=== PATIENT | male | born 1935 | race Caucasian/White ===

== ENCOUNTER → 2016-09-17 | Outpatient (CLI) | payer MEDICARE, OTHER | END | disposition home or self-care (01) | LOC: GMAM 15:06 | PROVIDERS: ATTEND Family Medicine | DX: R80.9 Proteinuria, unspecified (principal) ==

== ENCOUNTER 2016-11-15 19:51 | Emergency (ER) | payer MEDICARE, OTHER ==
[2016-11-15] MEDS ORDERED: ASPIRIN TABLET 325 MG TAB PO ONE (19:54)
[2016-11-15 20:08] VITALS: TEMP 100.1
--- NOTE | 2016-11-15 20:11 | ED.PDOC ---
History of Present Illness - General Chief Complaint: Chest Pain/[place] Stated Complaint: stroke like symptoms, drooling, weakness Time Seen by Provider: 11/15/16 19:53 Source: patient, RN notes reviewed, Vital Signs reviewed, family - Granddaughter Exam Limitations: no limitations - History of Present Illness Initial Comments: Patient is an 81 y/o male who began feeling weak and a bit disoriented at around noon. He ws driving his tractor and was unable to steer it the way he wanted to. He has been fatigued all day, but not sleeping. He feels pain in his joints, and is weak all over. He does not notice weakness on one side moreso than the other. According to granddaughter, Patient is very active and this is unusual for him. Timing/Duration: other - since 1200 today. Severity: moderate Improving Factors: nothing Worsening Factors: nothing Associated Symptoms: headaches, loss of appetite, weakness Allergies/Adverse Reactions: Allergies Penicillin G Allergy (Unverified 11/15/16 20:08) Home Medications: Ambulatory Orders Finasteride 5 mg PO DAILY 07/14/13 HYDROcodone 5MG/APAP 325MG [[place] 5/325] 1 ea PO PRN 07/14/13 Tamsulosin [Flomax] 0.4 mg PO DAILY 07/14/13 Cefdinir 300 mg PO BID #20 cap 11/16/16 Review of Systems - Review of Systems Constitutional: States: no symptoms reported. Denies: chills, fever EENTM: States: no symptoms reported Respiratory: States: no symptoms reported Cardiology: States: no symptoms reported Gastrointestinal/Abdominal: States: no symptoms reported Genitourinary: States: no symptoms reported Musculoskeletal: States: joint pain, muscle stiffness Skin: States: no symptoms reported Neurological: States: headache, tingling - Bilateral tingling--usually only tingling in his left hand due to carpal tunnel, weakness Endocrine: States: no symptoms reported Hematologic/Lymphatic: States: no symptoms reported All other Systems: Reviewed and Negative Past Medical History (General) - Patient Medical History Hx Seizures: No Hx Stroke: No Hx Dementia: No Hx Asthma: No Hx of COPD: No Hx Cardiac Disorders: No Hx Congestive Heart Failure: No Hx Pacemaker: No Hx Hypertension: Yes Hx Thyroid Disease: No Hx Diabetes: No Hx Gastroesophageal Reflux: No Hx Renal Disease: No Hx Cancer: No Hx of HIV: No Hx Hepatitis C: No Hx MRSA: No Surgical History: other - Vaccination History Hx Tetanus, Diphtheria Vaccination: No Hx Influenza Vaccination: Yes Hx Pneumococcal Vaccination: Yes Immunizations Up to Date: No - Social History Hx Tobacco Use: No Hx Chewing Tobacco Use: No Hx Alcohol Use: No Hx Substance Use: No Hx Substance Use Treatment: No Hx Depression: No Feels Threatened In Home Enviroment: No Feels Threatened In a Relationship: No Hx Physical Abuse: No Hx Emotional Abuse: No Hx Suspected Abuse: No Family Medical History - Family History Mother Family History: Unknown Living Status: Physical Exam - Physical Exam General Appearance: Alert, No apparent distress Eye Exam: bilateral normal Ears, Nose, Throat: hearing grossly normal, normal ENT inspection Neck: non-tender, full range of motion, supple Respiratory: lungs clear, normal breath sounds, no respiratory distress, no accessory muscle use Cardiovascular/Chest: normal peripheral pulses, regular rate, rhythm, no edema, no gallop Gastrointestinal/Abdominal: normal bowel sounds, non tender, soft, no organomegaly Extremity: normal range of motion, non-tender, normal inspection, no pedal edema Neurologic: prop setter II-XII nml as tested, no motor/sensory deficits, alert, normal mood/affect, oriented x 3 Skin Exam: normal color, warm/dry Progress - Progress Progress: 11/15/16 22:43 After discussing with patient his labs, I questioned any other symptoms. He then admitted he had very mild discomfort in his abdomen, although he denied any pain with my first exam. In palpating again, he did have some RUQ pain. Additionally, Patient has a scratch on his right hand that has scabbed over. There is erythema and warmth around the scratch. He hit his hand on his car door several days ago but has had no problems with it. 11/15/16 23:57 Although I indicated that I would like to have Patient admitted, he did not want to be admitted and wants to go home. Therefore, although I do not know what I'm treating for, I will give him Rocephin 1 gm IV and a prescription for cefdinir 300 mg BID x 10 days. Patient assures me that he will follow up with his PCP tomorrow morning. - EKG/XRAY/CT EKG: Sinus, Tachy - 104 bpm, nonspecific ST T wave Chg, Changed from - 05/29/2016 -no longer first degree AV block Comments: NML axis, NML intervals, abnormal EKG XRAY: chest Xray Comments: No acute process CT: Head: NML for age, ABD/Pelv: No acute process CT Ordered: Yes Departure - Departure Clinical Impression: Generalized weakness, Neutrophilic leukocytosis Time of Disposition: 00:01 Disposition: Discharge to Home or Self Care Condition: Good Departure Forms: ED Discharge - Pt. Copy, Patient Portal Self Enrollment Instructions: DI for Leukocytosis Diet: resume usual diet Referrals: Luan Cardoso MD [Primary Care Provider] - 1-2 Days Prescriptions: Cefdinir 300 mg PO BID #20 cap Home Medications: Ambulatory Orders Finasteride 5 mg PO DAILY 07/14/13 HYDROcodone 5MG/APAP 325MG [[place] 5/325] 1 ea PO PRN 07/14/13 Tamsulosin [Flomax] 0.4 mg PO DAILY 07/14/13 Cefdinir 300 mg PO BID #20 cap 11/16/16 Additional Instructions: Follow up IMMEDIATELY in the ED for any worsening of symptoms, including nausea/ vomiting, headache, abdominal pain, shortness of breath. Follow up with Dr. Cardoso TOMORROW.
--- NOTE | 2016-11-15 20:20 | RAD ---
EXAM DESCRIPTION: Chest,1 View CLINICAL HISTORY: 81 years Male stroke protocol weakness. COMPARISON: 07/14/2013. FINDINGS: The cardiomediastinal silhouette appears unremarkable. Atherosclerotic calcifications and mild tortuosity in the thoracic aorta. Minimal right basilar atelectatic changes. No consolidating infiltrates or pleural effusions. No pneumothorax. Degenerative changes in the spine. IMPRESSION: No acute abnormality is identified. Electronically signed by: Fausto Irby MD 11/15/2016 8:19 PM CDT
--- NOTE | 2016-11-15 20:25 | CT ---
PROCEDURE: Head CLINICAL HISTORY: 81 years Male weakness COMPARISON: None. TECHNIQUE: Contiguous axial images obtained through the brain without IV contrast. This exam was performed according to our department optimization program which includes automated exposure control, adjustment of the mA and/or kv according to patient size and/or use of iterative reconstruction technique. FINDINGS: The ventricles and sulci are prominent consistent with atrophic changes. No mass lesions. No acute hemorrhage. Atherosclerotic calcifications. Mild microvascular ischemic changes. Mild mucosal thickening within the maxillary sinuses greater on the right. Mucosal thickening within the left ethmoid air cells. Lipoma within the left scalp. No depressed calvarial fractures. IMPRESSION: No acute intracranial abnormality is identified. Electronically signed by: Fausto Irby MD 11/15/2016 8:24 PM CDT
[2016-11-15] MEDS: SODIUM CHLORIDE 0.9% (FLUSH) 10 ML SYG IV PRN (20:28)
--- NOTE | 2016-11-15 23:45 | CT ---
EXAM DESCRIPTION: Abdomen w/Contrast CLINICAL HISTORY: 81 years Male RUQ tenderness/elevated WBC COMPARISON: None. TECHNIQUE: Contiguous axial images obtained through the abdomen and pelvis following IV contrast. Reformatted images obtained. This exam was performed according to our department optimization program which includes automated exposure control, adjustment of the mA and/or kv according to patient size and/or use of iterative reconstruction technique. FINDINGS: Scarring/atelectasis in the lower lungs greater on the right. Changes from pneumonia at the right lung base is not totally excluded. Coronary artery calcifications. Small hiatal hernia. The liver appears unremarkable. The spleen and pancreas appear unremarkable. No adrenal masses. Small renal cysts. Tiny nonobstructing renal calculi. No hydronephrosis. Questionable less than 2 mm calculus at the right ureterovesical junction. Possible small stones within the gallbladder. Atherosclerotic calcifications. No aneurysmal dilatation of the aorta. No bowel obstruction. Changes from colonic diverticulosis. The appendix appears unremarkable. No free pelvic fluid. The prostate gland is enlarged and heterogeneous. Correlation with PSA recommended. Mild curvature in the lumbar spine convex left. Degenerative changes in the spine. Small sclerotic foci within the sacrum likely bone islands. Bone scanning could be obtained if there is clinical concern for metastatic disease. IMPRESSION: Scarring/atelectasis in the lower lungs greater on the right. Changes from pneumonia at the right lung base not totally excluded. Tiny nonobstructing renal calculi with probable less than 2 mm calculus at the right ureterovesical junction. No hydronephrosis. Probable small stones in the gallbladder. Atherosclerotic changes. Colonic diverticulosis. The prostate gland is enlarged and heterogeneous. Correlation with PSA recommended. Small sclerotic foci in the sacrum likely bone islands. Bone scanning could be obtained if there is clinical concern for metastatic disease. Electronically signed by: Fausto Irby MD 11/15/2016 11:44 PM CDT
[2016-11-15] MEDS ORDERED: cefTRIAXone SODIUM 1 GM in SODIUM CHL 0.9% 50ML MIN-BAG+ 50 ML IVPB ONE (23:55)
[2016-11-16] MEDS ORDERED: SODIUM CHL 0.9% 50ML MIN-BAG+ 50 ML IVPB ONE (00:09)
[2016-11-16] MEDS ORDERED: cefTRIAXone SODIUM 1 GM VIAL ONE (00:09)
[2016-11-16] MEDS: SODIUM CHLORIDE 0.9% (FLUSH) 10 ML SYG IV PRN (00:11)
[2016-11-16 00:19] VITALS: BP 120/80; O2SAT 98
== END 2016-11-16 00:57 | disposition home or self-care (01) ==
LOC: ER 19:51
DX: R53.1 Weakness (principal); D72.828 Other elevated white blood cell count; I10 Essential (primary) hypertension; Z88.0 Allergy status to penicillin; R10.11 Right upper quadrant pain
CPT/HCPCS: 36415; 70450; 71010; 74160; 80053; 81001; 82550; 82553; 82948; 83880; 84484; 85025; 85610; 85730; 87040; 93005; 94760; J0696; J7050

== ENCOUNTER → 2016-11-16 | Outpatient (CLI) | payer MEDICARE, OTHER | END | disposition home or self-care (01) | LOC: GMAM 12:29 | PROVIDERS: ATTEND Family Medicine | DX: N40.0 Benign prostatic hyperplasia without lower urinary tract symptoms (principal) ==

== ENCOUNTER → 2016-11-22 | Outpatient (CLI) | payer MEDICARE, OTHER ==
--- NOTE | 2016-11-22 14:01 | MRI ---
EXAM DESCRIPTION: Brain w/oContrast CLINICAL HISTORY: 81 years,Male,SPEECH DISTURBANCE COMPARISON: None TECHNIQUE: MRI performed multiple sequences of the brain without contrast. FINDINGS: There is no abnormal extra-axial fluid collection. No mass effect. Rodriguez-white matter differentiation demonstrates mild increased T2 signal in the periventricular white matter. Sulcation and ventricles mild generalized atrophy. No mass effect. Diffusion demonstrates no acute findings. The included paranasal sinuses are unremarkable. The mastoid air cells are unremarkable. IMPRESSION: Mild periventricular chronic ischemic changes and age-appropriate atrophy. No acute findings Electronically signed by: Yovanny Melendez MD 11/22/2016 2:01 PM CDT
--- NOTE | 2016-11-22 14:05 | US ---
EXAM DESCRIPTION: Gall Bladder CLINICAL HISTORY: 81 years,Male,CHOLELITHIASIS COMPARISON: None TECHNIQUE: Multiple real-time sonographic images were obtained of the right upper quadrant. FINDINGS: The liver demonstrates mild increased echotexture. No masses. No cysts. It measures 16.1 cm in craniocaudal length. Gallbladder demonstrates anechoic lumen. There is no intrahepatic biliary ductal dilatation. The gallbladder wall thickness is unremarkable. No pericholecystic fluid. The common bile duct measures three mm in diameter. Right kidney demonstrates not visualized. The pancreas visualized portions of the head and body appear unremarkable. No free fluid in the right upper quadrant. IMPRESSION: Mild fatty liver infiltration otherwise unremarkable right upper quadrant. Electronically signed by: Yovanny Melendez MD 11/22/2016 2:04 PM CDT
--- NOTE | 2016-11-22 14:10 | NM ---
EXAM DESCRIPTION: Bone Scan, Whole Body CLINICAL HISTORY: 81 years, Male, ABNORMAL CT COMPARISON: None. TECHNIQUE: 25 mCi of technetium 99m labeled MDP was injected intravenously followed by whole-body imaging FINDINGS: Calvarium: Unremarkable. Spine: Unremarkable except for some mild uptake on the left aspect at about L3 posteriorly. Pelvis: Unremarkable. Thorax: Moderate uptake seen at the right clavicular manubrial joint. Otherwise unremarkable EXTREMITIES: Bilateral total knee arthroplasties. And moderate uptake seen in right AC joint and mild at both glenohumeral joints. Soft tissues: Unremarkable. IMPRESSION: No evidence of abnormal uptake in the sacrum suggesting the lesion on the prior CT scan is a bone island. Moderate degenerative uptake seen in the right clavicular manubrial joint and in the right AC joint and mild in both glenohumeral joints. Mild uptake seen posteriorly at about L3 most likely due to facet arthropathy Electronically signed by: Yovanny Melendez MD 11/22/2016 2:10 PM CDT
== END ==
LOC: MRI 06:44
PROVIDERS: ATTEND Family Medicine
DX: K80.80 Other cholelithiasis without obstruction (principal); R47.9 Unspecified speech disturbances; R93.7 Abnormal findings on diagnostic imaging of other parts of musculoskeletal system; N20.0 Calculus of kidney; K76.0 Fatty (change of) liver, not elsewhere classified

== ENCOUNTER → 2016-12-06 | Outpatient (CLI) | payer MEDICARE, OTHER ==
--- NOTE | 2016-12-07 01:44 | US ---
Procedure: US CAROTID DOPPLER BILATERAL Exam Date: 12/06/2016 Ordering Provider: AMANDA QUACH Clinical Indication: CEREBROVASCULAR DISEASE Comparison: None TECHNIQUE : Real-time cerebrovascular ultrasonography was obtained from sternal notch to the angle of the mandible bilaterally utilizing perez scale, color flow and spectral Doppler analysis. Systolic velocity ratios were calculated for internal carotid artery to common carotid artery bilaterally. FINDINGS: RIGHT CAROTID BIFURCATION: No significant atherosclerotic plaque. Peak systolic and end-diastolic velocities in the right internal carotid artery are 108 and 6.6 cm/s. Internal carotid/common carotid ratio is 1.3. Right vertebral flow is antegrade. LEFT CAROTID BIFURCATION: No significant atherosclerotic plaque. Peak systolic and end-diastolic velocities in the left internal carotid artery are 64 and 19 cm/s. Internal carotid/common carotid ratio is 0.7. Left vertebral flow is antegrade. IMPRESSION: 1. No significant atherosclerotic plaque in each carotid bulb and ICA origin. 2. There is no significant stenosis (less than 50%) at either ICA origin. 3. Bilateral antegrade vertebral artery flow. Electronically signed by: Harrison Meadows MD 12/07/2016 1:43 AM CDT
== END ==
LOC: US 07:53
PROVIDERS: ATTEND Family Medicine
DX: I25.10 Atherosclerotic heart disease of native coronary artery without angina pectoris (principal); I67.9 Cerebrovascular disease, unspecified

== ENCOUNTER → 2017-09-16 | Outpatient (CLI) | payer MEDICARE, OTHER | LOC: GMAM 10:29 | PROVIDERS: ATTEND Family Medicine | DX: R97.20 Elevated prostate specific antigen [PSA] (principal); I10 Essential (primary) hypertension; R31.21 Asymptomatic microscopic hematuria ==

== ENCOUNTER → 2018-04-10 | Outpatient (CLI) | payer MEDICARE, OTHER ==
--- NOTE | 2018-04-11 08:38 | MRI ---
EXAM DESCRIPTION: Lumbar Spine w/o Contrast : Magnetic Resonance Imaging. CLINICAL HISTORY: LUMBAR RADICULOPATHY COMPARISON: MRI lumbar spine 05/15/2013. TECHNIQUE: Multiplanar, multiple standard sequences, non contrast MRI, lumbar spine. FINDINGS: L5-S1: Disc desiccation with disc space preserved. Minimal posterior bulging. Minimal facet arthrosis and ligament hypertrophy. Mild canal narrowing. Moderate left foraminal narrowing and mild right foraminal narrowing. Trace anterolisthesis. L4-5: Minimal disc space loss with disc desiccation and anterior bulging. Grade 1 anterolisthesis. Posterior disc bulge partially uncovered with hyperintense T2-weighted signal indicating annular fissure in the midline. Bilateral narrowing of the subarticular recesses, right more than left facet arthrosis with small synovial cyst in the canal on the right at the level of the mid L5 vertebral body. Bilateral flavum ligament hypertrophy. AP canal diameter 9 mm. Mild narrowing of the left foramen. Moderate to severe right foraminal narrowing. L3-4: Disc desiccation with anterior and posterior minimal bulging. Flavum ligament hypertrophy and facet effusions bilaterally. Subchondral cyst in the left L4 lamina facet. AP canal diameter 10 mm. Moderate narrowing of the right foramen and mild narrowing of the left foramen. Central hypodense lesion in the L3 vertebral body on all sequences. L2-3: Disc space minimally decreased with disc desiccation. Anterior disc bulge with endplate spurs. Tiny posterior bulge. Bilateral flavum ligament hypertrophy. Mild canal narrowing. Left foramen patent. Mild narrowing of the right foramen. L1-2: Desiccated disc with disc space preserved. Minimal anterior bulging with no posterior bulging. Posterior elements unremarkable. Canal and bilateral foramina are patent. T12-L1: Disc desiccation with disc space preserved. Posterior elements unremarkable. Canal and foramina are patent. Conus terminates at T12. Well-circumscribed hyperintense T1 and T2 signal in the superior T12 vertebral body.. Left convex L2-L5 levoscoliosis. Paravertebral soft tissues minimal paraspinal muscle atrophy.. Normal marrow signal in the remaining vertebral bodies and the posterior elements. Vertebral bodies are not compressed at any level. IMPRESSION: 1. L4-5 grade 1 anterolisthesis with disc space loss and desiccation. Posterior annular fissure in the midline. This is a new finding. Bilateral narrowing of the subarticular recesses. Small synovial cyst on the right at the level of the mid L5 vertebral body. Stable since the prior study. Mild central canal stenosis, progressed since the prior study. Moderate severe right foraminal narrowing. No change since the prior study. 2. Borderline central canal stenosis L3-4. Moderate narrowing of the right foramen. Subchondral cyst in the left L4 lamina facet. Disc desiccation and minimal posterior bulging. 3. Minimal facet arthrosis and flavum ligament hypertrophy L5-S1. Mild canal narrowing and moderate left foraminal narrowing. Electronically signed by: Jose Tse MD 04/11/2018 8:36 AM CDT
== END ==
LOC: MRI 10:16
PROVIDERS: ATTEND Family Medicine
DX: M54.16 Radiculopathy, lumbar region (principal); M48.061 Spinal stenosis, lumbar region without neurogenic claudication; M71.38 Other bursal cyst, other site

== ENCOUNTER → 2019-02-19 | Outpatient (CLI) | payer MEDICARE, OTHER | LOC: GMAM 10:53 | PROVIDERS: ATTEND Family Medicine | DX: N40.0 Benign prostatic hyperplasia without lower urinary tract symptoms (principal); E78.2 Mixed hyperlipidemia; E11.51 Type 2 diabetes mellitus with diabetic peripheral angiopathy without gangrene; I10 Essential (primary) hypertension ==

== ENCOUNTER → 2019-03-26 | Outpatient (CLI) | payer MEDICARE, OTHER | LOC: GMAM 14:17 | PROVIDERS: ATTEND Family Medicine | DX: M10.9 Gout, unspecified (principal) ==

== ENCOUNTER → 2019-05-27 | Outpatient (CLI) | payer MEDICARE, OTHER | LOC: GMAM 13:13 | PROVIDERS: ATTEND Family Medicine | DX: S91.109A Unspecified open wound of unspecified toe(s) without damage to nail, initial encounter (principal) ==

== ENCOUNTER → 2020-03-09 | Outpatient (CLI) | payer MEDICARE, OTHER | LOC: GMAM 14:43 | PROVIDERS: ATTEND Family Medicine | DX: R97.20 Elevated prostate specific antigen [PSA] (principal); E11.9 Type 2 diabetes mellitus without complications; E78.2 Mixed hyperlipidemia; I10 Essential (primary) hypertension ==

== ENCOUNTER 2020-05-10 16:54 | Inpatient (IN) | payer MEDICARE, OTHER ==
--- NOTE | 2020-05-10 16:56 | HP ---
SUPERVISING PHYSICIAN: AMANDA QUACH MD CHIEF COMPLAINT: Weakness and fever. HISTORY OF PRESENT ILLNESS: This is an 84 year-old male patient who has had fever since yesterday, it was up to 100.6. He has also had some generalized weakness and body aches, some congestion and a mild dry cough. He hasn't had much of an appetite. He called Dr. Quach's office and he was seen via Telemedicine. He has not had any known contact with Covid-19. At the clinic, he tested positive for Covid-19. His lab at the clinic showed a strep screen that was negative, Covid-19 tested positive. His magnesium was 1.8, CPK 69, creatinine 1.66, sodium slightly low at 133, D-dimer 1,220, troponin 0.02. WBC 4.5 with hemoglobin 14.2, hematocrit 42.2. He was extremely weak and had difficulty walking, he had a poor appetite and I was called by Dr. Quach for direct admission to the hospital for treatment of Covid-19. PAST MEDICAL HISTORY: 1. Hypertension. 2. Hyperlipidemia. 3. Type 2 diabetes mellitus. 4. Spinal stenosis. 5. Gout. PAST SURGICAL HISTORY: 1. Hernia repair. 2. Bilateral knee replacements. CURRENT MEDICATIONS: Per the EMR and awaiting verification. ALLERGIES: Penicillin. FAMILY HISTORY: SOCIAL HISTORY: He is . He lives in [place], he is a caputo/rancher. He denies any tobacco, ETOH or illicit drug use. REVIEW OF SYSTEMS: GENERAL: Positive for fatigue and fever, negative for weight changes. HEENT: Positive for sinus symptoms, negative for ear pain, vision changes, sore throat. RESPIRATORY: Positive for coughing, negative for wheezing, shortness of breath CARDIAC: Negative for chest pain, palpitations, tachycardia. GI: Negative for nausea, vomiting or diarrhea, constipation. GENITOURINARY: Negative for hematuria, dysuria, polyuria. SKIN: Negative for lesions or rashes. NEUROLOGICAL: Positive for headache, weakness, negative for seizures. PHYSICAL EXAMINATION: VITAL SIGNS: Temperature 99.1, heart rate 70, blood pressure 156/75, respiratory rate 16, oxygen saturation 96% on room air. GENERAL: This is an 84 year-old male patient who is sitting up in his hospital bed. He looks to be moderately ill. HEENT: Normocephalic and atraumatic. Pupils are equal and reactive. Oropharynx is clear. NECK: Supple without mass. CHEST: Diminished breath sounds but otherwise clear to auscultation. CARDIOVASCULAR: Regular rate and rhythm. ABDOMEN: Soft, nondistended, non-tender. Bowel sounds are positive.. SKIN: [place], warm and dry. NEUROLOGIC: He is awake, alert, and oriented x3. Cranial nerves II through XII are grossly intact as tested. LABORATORY: As per the history of present illness. PTT is 34.3 with fibrinogen of 425. LD 187, creatinine kinase 72, C-reactive protein is 5.4. All other labs and films have been reviewed via the EMR. ASSESSMENT: 1. Covid-19 pneumonia with weakness and fever. 2. Hypertension. 3. Diabetes mellitus type 2. 4. Gout. PLAN: The patient has been admitted to the hospital. The pneumonia guidelines have been initiated including azithromycin and Rocephin. He will also have aggressive pulmonary hygiene, Lovenox for DVT prophylaxis and Pantoprazole for ulcer prophylaxis. Will also have Decadron and Remdesivir. The Covid guidelines are also being followed and we will monitor his labs. His home medications will be restarted as soon as they are verified. We will continue to monitor closely and follow as needed. #[id number] [facility]
[2020-05-10] MEDS ORDERED: SODIUM CHLORIDE 0.9% (FLUSH) 10 ML SYG IV PRN (17:07)
[2020-05-10] MEDS ORDERED: ONDANSETRON INJ 4 MG/2 ML VIAL IV PRN (17:07)
[2020-05-10] MEDS ORDERED: REMDESIVIR 200 MG in SODIUM CHLORIDE 0.9% 250ML 250 ML IVPB ONE (17:33)
[2020-05-10] MEDS ORDERED: cefTRIAXone SODIUM 1 GM in SODIUM CHL 0.9% 50ML MIN-BAG+ 50 ML IVPB ONE ×2 (17:34→20:00)
[2020-05-10] MEDS ORDERED: AZITHROMYCIN IV 500 MG in SODIUM CHLORIDE 0.9% 250ML 250 ML IVPB ONE ×2 (17:34→19:30)
[2020-05-10] MEDS ORDERED: ALBUTEROL INHALER 64 PUFF/8GM INH PRN (17:36)
[2020-05-10] MEDS ORDERED: SODIUM CHLORIDE 0.9% 250ML 250 ML ONE ×2 (18:09→20:07)
[2020-05-10] MEDS: DEXAMETHASONE INJ 10 MG/ML VIAL IV SCH (18:18)
[2020-05-10] MEDS: IV SET AND CAP CHANGE INJ INJ SCH (18:19)
[2020-05-10] MEDS ORDERED: GLUCAGON INJ 1 MG VIAL SUBCU PRN (18:38)
[2020-05-10] MEDS ORDERED: DEXTROSE 50% 25 GM/50 ML SYG IV PRN (18:38)
[2020-05-10] MEDS ORDERED: traMADol HCL 50 MG TAB PO PRN (18:58)
[2020-05-10] MEDS ORDERED: AZITHROMYCIN IV 500 MG VIAL IVPB ONE (20:06)
[2020-05-10] MEDS ORDERED: cefTRIAXone SODIUM 1 GM VIAL ONE (20:06)
[2020-05-10] MEDS ORDERED: CARVEDILOL 3.125 MG TAB ONE (20:06)
[2020-05-10] MEDS ORDERED: SODIUM CHL 0.9% 50ML MIN-BAG+ 50 ML IVPB ONE (20:07)
[2020-05-10] MEDS: BIFIDOBACTERIUM INFANTIS 4 MG CAP PO SCH (20:28)
[2020-05-10] MEDS: SODIUM CHLORIDE 0.9% (FLUSH) 10 ML SYG IV SCH (20:28)
[2020-05-10] MEDS: ATORVASTATIN 10 MG TAB PO SCH (20:29)
[2020-05-10] MEDS: guaiFENesin ER TAB 600 MG TAB PO SCH (20:29)
[2020-05-10] MEDS: ENOXAPARIN SODIUM 40 MG/0.4 ML SYG SUBCU SCH (20:29)
[2020-05-10] MEDS ORDERED: NON-FORMULARY MEDICATION 1 EA MIS (Carvedilol [Carvedilol] 6.25 MG) PO SCH (21:00)
[2020-05-10] MEDS: INSULIN LISPRO 100 UNITS/ML PEN SUBCU SCH (21:00)
[2020-05-10] MEDS: ALBUTEROL INHALER 64 PUFF/8GM INH SCH (21:55)
[2020-05-11] MEDS: PANTOPRAZOLE SODIUM IV 40 MG VIAL IV SCH (05:58)
--- NOTE | 2020-05-11 07:28 | RAD ---
CHEST, ONE VIEW XR CLINICAL HISTORY: covid COMPARISON: 11/15/2016 TECHNIQUE: AP Chest. FINDINGS: Heart is minimally enlarged. There is moderate atherosclerosis. Normal pulmonary vascularity. There is peripheral atelectasis in the central aspect of the right lung. There is no consolidation or pleural fluid. No pneumothorax. Minimal left basilar atelectasis. Moderate thoracic spondylosis. Normal soft tissues. IMPRESSION: 1. Minimal bilateral atelectasis. Mild cardiomegaly with senescent aorta. No acute disease. Electronically signed by: Concepcion Paredes DO 05/11/2020 7:27 AM CDT
--- NOTE | 2020-05-11 07:35 | CT ---
EXAM DESCRIPTION: Chest w/o Contrast CLINICAL HISTORY: 84 years, Male, covid COMPARISON: Chest x-ray May 11, 2020 TECHNIQUE: Thin-section noncontrast axial CT images are obtained according to our protocol. Reconstructed MPR images are created and reviewed as well. FINDINGS: Lungs: Infiltrate is seen in the right lung involving all three lobes somewhat peripherally distributed. Groundglass density predominates over consolidation. Lesser patchy infiltrate in the left lower lobe and in the lingula. Left apex appears spared. Findings are consistent with pneumonia. The clinical history is Covid 19. No worrisome pulmonary mass or nodule. Mediastinum: Lymph nodes are normal in size. Small hiatal hernia in the lower chest. Normal vascular contours. Heart size is prominent with no pericardial effusion. Extensive coronary arterial calcification. Chest wall/axilla: No mass or adenopathy. Advanced arthritic changes of the right shoulder. Lower neck/supraclavicular: No mass or adenopathy. Normal sized thyroid gland with inhomogeneity. Upper abdomen: Small calcified stones in the gallbladder lumen. Otherwise unremarkable upper abdominal viscera. Coronal and sagittal reformatted images confirm the findings. Advanced degenerative changes in lower C-spine with C6-7 anterolisthesis. Multilevel spurring in the T-spine. No significant spinal canal compromise is evident. IMPRESSION: Pulmonary infiltration of the right lung more than left consistent with pneumonia. This exam was performed according to our departmental dose-optimization program, which includes automated exposure control, adjustment of the mA and/or kV according to patient size and/or use of iterative reconstruction technique. Total DLP equals 582.38 mGycm. Electronically signed by: Que Graf MD 05/11/2020 7:33 AM CDT
[2020-05-11] MEDS: INSULIN LISPRO 100 UNITS/ML PEN SUBCU SCH ×4 (07:47→21:19)
[2020-05-11] MEDS ORDERED: SODIUM CHLORIDE 0.9% 250ML 0 ML ONE (08:06)
[2020-05-11] MEDS ORDERED: cefTRIAXone SODIUM 1 GM VIAL ONE (08:47)
[2020-05-11] MEDS ORDERED: SODIUM CHL 0.9% 50ML MIN-BAG+ 50 ML IVPB ONE (08:48)
[2020-05-11] MEDS: ALBUTEROL INHALER 64 PUFF/8GM INH SCH ×4 (08:52→21:00)
[2020-05-11] MEDS ORDERED: REMDESIVIR 100 MG in SODIUM CHLORIDE 0.9% 250ML 250 ML IVPB SCH (09:00)
[2020-05-11] MEDS: DEXAMETHASONE INJ 10 MG/ML VIAL IV SCH ×2 (09:15→10:32)
[2020-05-11] MEDS: CARVEDILOL 12.5 MG TAB PO SCH ×2 (09:15→20:30)
[2020-05-11] MEDS: CELECOXIB 100 MG CAP PO SCH (09:16)
[2020-05-11] MEDS: BIFIDOBACTERIUM INFANTIS 4 MG CAP PO SCH ×2 (09:16→20:30)
[2020-05-11] MEDS: guaiFENesin ER TAB 600 MG TAB PO SCH ×2 (09:17→20:30)
[2020-05-11] MEDS: ASPIRIN (CHEWABLE) 81 MG TAB PO SCH (09:17)
[2020-05-11] MEDS: ALLOPURINOL 300 MG TAB PO SCH (09:17)
[2020-05-11] MEDS: cefTRIAXone SODIUM 1 GM in SODIUM CHL 0.9% 50ML MIN-BAG+ 50 ML IVPB SCH (09:17)
[2020-05-11] MEDS: REMDESIVIR 100 MG in SODIUM CHLORIDE 0.9% 250ML 250 ML IVPB SCH (09:45)
[2020-05-11] MEDS: SODIUM CHLORIDE 0.9% (FLUSH) 10 ML SYG IV SCH ×2 (10:31→20:31)
[2020-05-11] MEDS: AZITHROMYCIN IV 500 MG in SODIUM CHLORIDE 0.9% 250ML 250 ML IVPB SCH (11:55)
--- NOTE | 2020-05-11 16:13 | PN ---
SUPERVISING PHYSICIAN: Luan Cardoso MD DATE: 05/11/20 SUBJECTIVE: The patient continues to feel tired and weak. He says his breathing is okay. He has not had any real shortness of breath. He has been maintaining his oxygen saturations around 2 liters. No other complaints. He does remain afebrile. He is concerned about his at home who is being tested at the clinic today. OBJECTIVE: VITAL SIGNS; Temperature 97.3, pulse 59, blood pressure 133/67, respirations 18, oxygen saturation 95% on room air. GENERAL: The patient looks to be resting comfortably in no acute distress He is alert and oriented x.3. CHEST: Just diminished towards the bases, I do not hear any rhonchi, rales, or wheezes. HEART: Regular rate and rhythm. ABDOMEN: Soft, non-tender, positive bowel sound. EXTREMITIES: Without edema. NEUROLOGIC: He is alert and oriented x3. LABORATORY: White count 3,900 with hemoglobin 13.8, hematocrit 41.2, platelet count 120,000, differential shows to be without a left shift. D-dimer is down to 868 from admission around 1200. Fibrinogen a little elevated at 471. Chemistries are showing creatinine 1.57, otherwise electrolytes within normal limits. Blood sugar ranges between 123 and 226 . Liver functions are showing all was negative. Calcium 7.5 but corrected for an albumin of 2.6 to 8.1. MICROBIOLOGY: None pending. RADIOLOGY: Chest x-ray this morning per radiology interpretation showed minimal bilateral atelectasis. He also had a CT of the chest and per radiology interpretation showed pulmonary infiltrates in the right lung more than the left consistent with pneumonia. ASSESSMENT: 1. Covid-19 pneumonia with weakness and fever. 2. Hypertension. 3. Diabetes mellitus type 2. 4. Gout. PLAN: Will continue current plan of care with antibodies of Rocephin, azithromycin, Decadron and Remdesivir. I would anticipate his length of stay to be at least another 24 to 48 hours, probably not discharge him until Saturday given his age and depends on what is going on with his . Right now, he is doing okay with his oxygen and seems to be tolerate some room air trial. Will continue with that but at night he does show some desaturations. We will repeat his labs as per protocol. He remains on DVT prophylaxis, Lovenox 40 subcu at bedtime. Again, Until we can transition patient to outpatient management, we will continue to monitor and treat as needed. #[id number] [facility]
[2020-05-11] MEDS: ENOXAPARIN SODIUM 40 MG/0.4 ML SYG SUBCU SCH (20:30)
[2020-05-11] MEDS: ATORVASTATIN 10 MG TAB PO SCH (20:31)
[2020-05-12] MEDS: PANTOPRAZOLE SODIUM IV 40 MG VIAL IV SCH (06:27)
--- NOTE | 2020-05-12 07:10 | RAD ---
CHEST, ONE VIEW XR CLINICAL HISTORY: COVID Pna COMPARISON: Chest 05/11/2020 TECHNIQUE: AP Chest. FINDINGS: Heart is borderline enlarged. Mild aortic arch atherosclerosis. Normal pulmonary vascularity. There is left lower lobe atelectasis. No consolidation. Pleural spaces are clear. No pneumothorax. Unremarkable soft tissues and bones. IMPRESSION: 1. Minimal persistent left lower lobe atelectasis. Right upper lobe atelectasis has resolved. Electronically signed by: Concepcion Paredes DO 05/12/2020 7:08 AM CDT
[2020-05-12] MEDS: INSULIN LISPRO 100 UNITS/ML PEN SUBCU SCH ×4 (08:02→22:18)
[2020-05-12] MEDS: ALBUTEROL INHALER 64 PUFF/8GM INH SCH ×4 (09:00→21:36)
[2020-05-12] MEDS ORDERED: NON-FORMULARY MEDICATION 1 EA MIS (Celecoxib [Celebrex] 200 MG) PO SCH (09:00)
[2020-05-12] MEDS: cefTRIAXone SODIUM 1 GM in SODIUM CHL 0.9% 50ML MIN-BAG+ 50 ML IVPB SCH (10:04)
[2020-05-12] MEDS: BIFIDOBACTERIUM INFANTIS 4 MG CAP PO SCH ×2 (10:04→20:13)
[2020-05-12] MEDS: guaiFENesin ER TAB 600 MG TAB PO SCH ×2 (10:05→20:13)
[2020-05-12] MEDS: SODIUM CHLORIDE 0.9% (FLUSH) 10 ML SYG IV SCH ×2 (10:05→20:13)
[2020-05-12] MEDS: ALLOPURINOL 300 MG TAB PO SCH (10:05)
[2020-05-12] MEDS: ASPIRIN (CHEWABLE) 81 MG TAB PO SCH (10:05)
[2020-05-12] MEDS: CARVEDILOL 12.5 MG TAB PO SCH (10:05)
[2020-05-12] MEDS: DEXAMETHASONE INJ 10 MG/ML VIAL IV SCH (10:05)
[2020-05-12] MEDS: AZITHROMYCIN IV 500 MG in SODIUM CHLORIDE 0.9% 250ML 250 ML IVPB SCH (11:30)
[2020-05-12] MEDS: REMDESIVIR 100 MG in SODIUM CHLORIDE 0.9% 250ML 250 ML IVPB SCH (13:00)
[2020-05-12] MEDS ORDERED: CARVEDILOL 3.125 MG TAB ONE (19:57)
[2020-05-12] MEDS: ATORVASTATIN 10 MG TAB PO SCH (20:13)
[2020-05-12] MEDS: ENOXAPARIN SODIUM 40 MG/0.4 ML SYG SUBCU SCH (20:13)
[2020-05-12] MEDS: CARVEDILOL 3.125 MG TAB PO SCH (20:15)
[2020-05-13] MEDS ORDERED: PANTOPRAZOLE SODIUM TAB 40 MG PO ONE (02:59)
[2020-05-13] MEDS: PANTOPRAZOLE SODIUM TAB 40 MG PO SCH (05:55)
--- NOTE | 2020-05-13 08:44 | PN ---
SUPERVISING PHYSICIAN: Luan Cardoso MD DATE: 05/12/20 SUBJECTIVE: The patient just reported anxious and weak. He says his breathing is okay. He has not had any nausea. His appetite has been a little decreased. He is a little concerned about what is going on with his , but he is feeling much better once he has been reassured that his is doing fine. OBJECTIVE: VITAL SIGNS; Temperature 97.6 pulse 61, blood pressure 146/82, respirations 16, oxygen saturation 96% on room air. GENERAL: The patient is resting comfortably. CHEST: Lung sounds are clear, just a little diminished towards the bases. HEART: Regular rate and rhythm. ABDOMEN: Soft, nontender, positive bowel sounds. EXTREMITIES: Without edema. NEUROLOGIC: He is alert and oriented x3. LABORATORY: White count 12,7900 with hemoglobin 14.1, hematocrit 41.9, platelet count 150,000, differential does show a left shift. Coagulation studies show D- dimer is down a little bit at 832 as well as fibrinogen is down to 525. PTT is improved a little bit to 35.4. Chemistries show a mildly low sodium of 134, potassium normal, BUN 36, creatinine 1.38. Liver functions are within normal limits. Calcium 7.4, but corrected for albumin of 2.4 to 8.1. Troponin less than 0.02. Blood sugars have been ranging between 111 and 169. MICROBIOLOGY: No specimens submitted. RADIOLOGY: Chest x-ray today per radiology interpretation shows minimal persistent left lower lobe atelectasis, right upper lobe atelectasis has resolved. ASSESSMENT: 1. COVID-19 pneumonia with weakness and fever. 2. Hypertension. 3. Diabetes mellitus, type 2. 4. Gout. PLAN: Will continue current plan of care as he seems to be doing pretty good with aggressive pulmonary hygiene. I have ordered physical therapy to ensure that he is safe to go home. He is on Rocephin, azithromycin, Decadron and Remdesivir. He is on breathing treatments. He is on DVT prophylaxis. He is on sliding scale. Until the patient can transition to outpatient management, we will continue to monitor and treat as needed. #[id number] [facility]
[2020-05-13] MEDS: INSULIN LISPRO 100 UNITS/ML PEN SUBCU SCH ×4 (08:53→20:48)
[2020-05-13] MEDS: guaiFENesin ER TAB 600 MG TAB PO SCH ×2 (09:29→20:42)
[2020-05-13] MEDS: ALLOPURINOL 300 MG TAB PO SCH (09:30)
[2020-05-13] MEDS: CELECOXIB 100 MG CAP PO SCH (09:30)
[2020-05-13] MEDS: BIFIDOBACTERIUM INFANTIS 4 MG CAP PO SCH ×2 (09:30→20:42)
[2020-05-13] MEDS: DEXAMETHASONE INJ 10 MG/ML VIAL IV SCH (09:32)
[2020-05-13] MEDS: cefTRIAXone SODIUM 1 GM in SODIUM CHL 0.9% 50ML MIN-BAG+ 50 ML IVPB SCH (09:32)
[2020-05-13] MEDS: SODIUM CHLORIDE 0.9% (FLUSH) 10 ML SYG IV SCH ×2 (09:33→20:44)
[2020-05-13] MEDS: ALBUTEROL INHALER 64 PUFF/8GM INH SCH ×4 (09:50→20:55)
[2020-05-13] MEDS ORDERED: MAGNESIUM SULFATE PREMIX 2GM 2 GM in PREMIX BAG 1 BAG IVPB ONE (10:05)
[2020-05-13] MEDS: AZITHROMYCIN IV 500 MG in SODIUM CHLORIDE 0.9% 250ML 250 ML IVPB SCH (10:22)
[2020-05-13] MEDS: ASPIRIN (CHEWABLE) 81 MG TAB PO SCH (10:56)
[2020-05-13] MEDS: CARVEDILOL 3.125 MG TAB PO SCH ×2 (10:57→20:42)
[2020-05-13] MEDS: REMDESIVIR 100 MG in SODIUM CHLORIDE 0.9% 250ML 250 ML IVPB SCH (12:52)
--- NOTE | 2020-05-13 16:54 | PN ---
SUPERVISING PHYSICIAN: Luan Cardoso MD DATE: 05/13/20 SUBJECTIVE: The patient is sitting up in bed. His main complaint is boredom, although he still feels somewhat weak, he is fairly anxious to go home. We discussed his lab work. He denies chest pain, nausea or vomiting. OBJECTIVE: VITAL SIGNS; Temperature 98.6, heart rate 76, blood pressure 142/86, respirations 18, oxygen saturation 92% on room air. CHEST: Somewhat diminished at the bases, otherwise clear to auscultation. HEART: Regular rate and rhythm. NEUROLOGIC: He is awake, alert and oriented x3. LABORATORY: WBCs 13,300 with hemoglobin of 15.7, hematocrit 45.8. He does have a left shift on his differential. D-dimer is 1,120. Electrolytes are basically within normal limits with the exception calcium is low at 7.6, magnesium low at 1.7. BUN 40, creatinine 1.44, C-reactive protein is 1.6. All other labs and films have been reviewed via the EMR. ASSESSMENT: 1. COVID-19 pneumonia with weakness and fever. 2. Hypertension. 3. Diabetes mellitus, type 2. 4. Gout. PLAN: Will continue present supportive care. I have given him some magnesium supplementation and increased his Lovenox to 70 mg at h.s. due to his increase in his D-dimer. I will repeat his Covid in the morning, hopefully he can be discharged tomorrow or the next day with close followup with his primary care physician, Dr. Cardoso. #[id number] [facility]
[2020-05-13] MEDS: IV SET AND CAP CHANGE INJ INJ SCH (17:01)
[2020-05-13] MEDS ORDERED: ASPIRIN (CHEWABLE) 81 MG TAB ONE (19:36)
[2020-05-13] MEDS ORDERED: ENOXAPARIN SODIUM 80 MG/0.8 ML SYG SUBCU ONE (19:36)
[2020-05-13] MEDS ORDERED: CARVEDILOL 3.125 MG TAB ONE (19:37)
[2020-05-13] MEDS: ATORVASTATIN 10 MG TAB PO SCH (20:42)
[2020-05-13] MEDS ORDERED: ASPIRIN (CHEWABLE) 81 MG TAB PO SCH (21:00)
[2020-05-13] MEDS ORDERED: ENOXAPARIN SODIUM 80 MG/0.8 ML SYG SUBCU SCH (21:00)
[2020-05-14] MEDS: PANTOPRAZOLE SODIUM TAB 40 MG PO SCH (06:09)
[2020-05-14] MEDS: DEXAMETHASONE INJ 10 MG/ML VIAL IV SCH (08:55)
[2020-05-14] MEDS: guaiFENesin ER TAB 600 MG TAB PO SCH (08:56)
[2020-05-14] MEDS: BIFIDOBACTERIUM INFANTIS 4 MG CAP PO SCH (08:56)
[2020-05-14] MEDS: ALBUTEROL INHALER 64 PUFF/8GM INH SCH ×2 (09:00→12:32)
[2020-05-14] MEDS: SODIUM CHLORIDE 0.9% (FLUSH) 10 ML SYG IV SCH (09:04)
[2020-05-14] MEDS: INSULIN LISPRO 100 UNITS/ML PEN SUBCU SCH ×2 (09:04→14:07)
[2020-05-14] MEDS: ALLOPURINOL 300 MG TAB PO SCH (09:12)
[2020-05-14] MEDS: CARVEDILOL 3.125 MG TAB PO SCH (09:13)
[2020-05-14] MEDS: cefTRIAXone SODIUM 1 GM in SODIUM CHL 0.9% 50ML MIN-BAG+ 50 ML IVPB SCH (09:13)
[2020-05-14] MEDS ORDERED: ENOXAPARIN SODIUM 80 MG/0.8 ML SYG SUBCU SCH (09:24)
[2020-05-14] MEDS: AZITHROMYCIN IV 500 MG in SODIUM CHLORIDE 0.9% 250ML 250 ML IVPB SCH (09:27)
[2020-05-14] MEDS: REMDESIVIR 100 MG in SODIUM CHLORIDE 0.9% 250ML 250 ML IVPB SCH (11:03)
[2020-05-14] MEDS ORDERED: INFLUENZA VIRUS VACC (ADULT) 0.5 ML SYG IM ONE ×2 (13:19→13:21)
[2020-05-14 14:16] VITALS: BP 146/88; TEMP 97.2; O2SAT 93
--- NOTE | 2020-05-15 13:25 | DS ---
SUPERVISING PHYSICIAN: Luan Cardoso MD DISCHARGE DIAGNOSIS: 1. Covid-19 pneumonitis with weakness and fever. 2. Hypertension. 3. Diabetes mellitus type 2. 4. Gout. HISTORY OF PRESENT ILLNESS: This is an 84 year-old male patient who has had fever starting the day before admission, was to 100.6. He also had generalized weakness and body aches with some congestion and a mild cough. He has had a poor appetite. He called his primary care physician, Dr. Cardoso, and was seen via Telehealth. He has not had any Covid-19 contacts and has been mostly at home since September. At the clinic he tested positive for Covid-19. His lab at the clinic his strep screen was negative, Covid-19 tested positive. His magnesium was 1.8, CPK 69, creatinine 1.66, sodium slightly low at 133, D-dimer 1,220, troponin 0.01. WBC 4.5 with hemoglobin 14.2, hematocrit 42.2. He was extremely weak and had difficulty walking as well as a poor appetite. I was called by Dr. Cardoso for direct admission to the hospital for treatment of Covid-19 pneumonitis. HOSPITAL COURSE: The patient was admitted to the hospital. His vital signs were stable. The pneumonia and Covid-19 guidelines were initiated. He was started on azithromycin and Covid panel was watched daily. He was placed on Lovenox for DVT prophylaxis, Pantoprazole for ulcer prophylaxis. He was also on IV Decadron as well as Remdesivir. His home medications were restarted. Over the next day or so, he slowly but progressively improved. He did have to have his Lovenox increased due to his upward trends on his D-dimer. During his stay, he was also quite worried about his who had been admitted to the hospital the day after he was admitted for Covid as well. His evaluation with PT felt that he was strong enough to go home with a walker but he was still quite weak. I had a long discussion with his daughter as well as his that he would need to slowly increase his activity and he will be discharged home today in stable condition. LABORATORY: WBCs on admission were 3,900, were as high as 13,300 and today are 11,400. Hemoglobin and hematocrit are stable at 15.8 and 47. He does have a left shift on his differential with his neutrophils at 79.6%. PTT was 34.3 on admission and 35.4 on discharge, fibrinogen initially was 425, went up to 471 and is down to 425. His D-dimer started at 8,068 and went up to 1120 and today is 1310. Electrolytes were unremarkable with the exception his calcium was low at 7.4 to 7.7. Magnesium was stable, although one time it was 1.7 and he required supplementation and today is 1.3. Liver enzymes were within normal limits. LD 196. CRP on admission was 5.4 and today is 0.9. His chest CT showed pulmonary infiltration on the right lung more than the left consistent with pneumonia. His final chest x-ray showed minimal persistent left lower lobe atelectasis, right upper lobe atelectasis is resolved. DISCHARGE PLAN: The patient will be discharged home in stable condition. He is to resume his previous diet and increase his activity as tolerated. He has a followup appointment with Dr. Cardoso on 05/21/20 at 10:15 AM. It will be via Telehealth. He has been instructed to call Dr. Cardoso's office to get an appointment for a lab draw on Saturday. His lab should include a CBC, fibrinogen, D-dimer, CMP with magnesium, LD, creatinine kinase and a CRP. At his followup, it may be helpful for the patient to have home health or physical therapy. He is to return to the hospital or followup with Dr. Cardoso for any problems or complications. I discussed this discharge plan with his daughter, Richa. She voiced understanding. In addition to his routine medications, he is to be discharged on Align, 7 days of Cefdinir, 6 days of Decadron, 30 days of Eliquis, albuterol inhaler and 4 days of azithromycin. [facility][id number] [facility]
== END 2020-05-14 13:55 | disposition home or self-care (01) | DRG 177 ==
LOC: MS 16:54
PROVIDERS: ADMIT Nurse Practitioner Acute Care; ATTEND Nurse Practitioner Acute Care
PROC: XW043E5 Introduction of Remdesivir Anti-infective into Central Vein, Percutaneous Approach, New Technology Group 5 (ICD-10-PCS; principal; 2020-05-10)
DX: U07.1 COVID-19 (principal); J12.89 Other viral pneumonia; E87.1 Hypo-osmolality and hyponatremia; I10 Essential (primary) hypertension; E11.9 Type 2 diabetes mellitus without complications; M10.9 Gout, unspecified; E78.5 Hyperlipidemia, unspecified; M48.00 Spinal stenosis, site unspecified; Z96.653 Presence of artificial knee joint, bilateral; Z88.0 Allergy status to penicillin

== ENCOUNTER → 2020-05-10 | Outpatient (CLI) | payer MEDICARE, OTHER | LOC: GMAM 15:05 | PROVIDERS: ATTEND Family Medicine | DX: B34.2 Coronavirus infection, unspecified (principal); R09.02 Hypoxemia; R50.9 Fever, unspecified ==

== ENCOUNTER → 2020-05-17 | Outpatient (CLI) | payer MEDICARE, OTHER | LOC: GMAM 15:14 | PROVIDERS: ATTEND Family Medicine | DX: B34.2 Coronavirus infection, unspecified (principal); R71.8 Other abnormality of red blood cells; R09.02 Hypoxemia ==

== ENCOUNTER → 2020-05-18 | Outpatient (CLI) | payer MEDICARE, OTHER | LOC: GMAM 12:47 | PROVIDERS: ATTEND Family Medicine | DX: U07.1 COVID-19 (principal); R71.8 Other abnormality of red blood cells; R09.02 Hypoxemia ==

== ENCOUNTER → 2020-05-26 | Outpatient (CLI) | payer MEDICARE, OTHER | LOC: GMAM 10:48 | PROVIDERS: ATTEND Family Medicine | DX: R09.02 Hypoxemia (principal); R60.9 Edema, unspecified ==

== ENCOUNTER → 2020-06-06 | Outpatient (CLI) | payer MEDICARE, OTHER | LOC: GMAM 11:05 | PROVIDERS: ATTEND Family Medicine | DX: U07.1 COVID-19 (principal); R09.02 Hypoxemia ==

== ENCOUNTER → 2020-06-20 | Outpatient (CLI) | payer MEDICARE, OTHER | LOC: GMAM 17:01 | PROVIDERS: ATTEND Family Medicine | DX: U07.1 COVID-19 (principal) ==